=== PATIENT | female | born 1955 | race Two or more races ===

== ENCOUNTER 2019-08-02 07:21 | Outpatient (CLI) | payer OTHER | END 2019-08-02 07:23 | disposition home or self-care (01) | LOC: SONOGRAMA 07:21 | DX: M60.88 Other myositis, other site (principal); M24.111 Other articular cartilage disorders, right shoulder ==

== ENCOUNTER 2019-10-06 07:30 | Day surgery (SDC) | payer OTHER | END 2019-10-06 17:55 | disposition home or self-care (01) | LOC: CIR.AMB 07:30 | DX: M75.121 Complete rotator cuff tear or rupture of right shoulder, not specified as traumatic (principal); M75.51 Bursitis of right shoulder; M24.011 Loose body in right shoulder ==